=== PATIENT | male | born 1990 | race Caucasian/White ===

== ENCOUNTER 2018-12-14 06:51 | Emergency (ER) | payer OTHER ==
[~2018-12-14] VITALS: Ht 175.3 cm; Wt 95.5 kg
[2018-12-14] MEDS ORDERED: LEXA1TAB PO (06:54)
[2018-12-14 07:56] VITALS: BP 131/85
== END 2018-12-14 08:04 | disposition home or self-care (01) ==
LOC: M ED 06:51
DX: S61.211A Laceration without foreign body of left index finger without damage to nail, initial encounter (principal); W26.8XXA Contact with other sharp object(s), not elsewhere classified, initial encounter; Y92.019 Unspecified place in single-family (private) house as the place of occurrence of the external cause